=== PATIENT | female | born 1960 | race Caucasian/White ===

== ENCOUNTER 2023-02-05 12:20 | Inpatient (IN) | payer MEDICARE, OTHER ==
[~2023-02-05] VITALS: Ht 180.3 cm; Wt 78.0 kg
[2023-02-05] MEDS ORDERED: MAGNESIUM HYDROXIDE 30 ML UDC PO PRN (13:00)
[2023-02-05] MEDS ORDERED: MAG HYDROX/AL HYDROX/SIMETH 30 ML UDC PO PRN (13:00)
[2023-02-05 13:46] VITALS: BP 124/76; TEMP 98.1; O2SAT 98
[2023-02-05] MEDS ORDERED: LURA80TA PO (14:18)
[2023-02-05] MEDS ORDERED: LEVO50TA8 PO (14:18)
[2023-02-05] MEDS ORDERED: SERT25TA PO (14:18)
[2023-02-05] MEDS ORDERED: ATOR10TA PO (14:18)
[2023-02-05] MEDS ORDERED: LORA-259 PO (14:18)
[2023-02-05] MEDS ORDERED: LURA60TA3 PO (14:41)
[2023-02-05] MEDS ORDERED: ALEN70TA80 PO (14:41)
[2023-02-05] MEDS: LORAZEPAM 0.5 MG TABLET PO PRN (14:53)
[2023-02-05 16:00] VITALS: BP 111/75; TEMP 98; O2SAT 96
[2023-02-05] MEDS: ATORVASTATIN 10 MG TABLET PO SCH (17:10)
[2023-02-05] MEDS: NICOTINE PATCH (14MG) 14 MG PATCH.TD24 TD SCH (17:10)
[2023-02-05 20:26] VITALS: BP 118/70; TEMP 98.6; O2SAT 97
[2023-02-05] MEDS: TEMAZEPAM 7.5 MG CAPSULE PO PRN (21:03)
[2023-02-06 07:18] LABS: ALBUMIN 3.7 g/dL (3.4-5.0); BILIRUBIN,TOTAL 0.5 mg/dL (0.2-1.0); CALCIUM, SERUM 9.5 mg/dL (8.5-10.1); POTASSIUM 4.3 mmol/L (3.5-5.1); TOTAL PROTEIN, SERUM 7.3 g/dL (6.4-8.2)
[2023-02-06 07:20] LABS: CHOLESTEROL 212 mg/dL (<200); HDL CHOLESTEROL 101 mg/dL (40-60); LDL 81 mg/dL (0-99); TRIGLYCERIDES 93 mg/dL (30-150)
[2023-02-06 08:00] VITALS: BP 114/79; TEMP 98.7; O2SAT 97
[2023-02-06] MEDS: LEVOTHYROXINE SODIUM 100 MCG TABLET PO SCH (08:11)
[2023-02-06] MEDS: OLANZAPINE 2.5 MG TABLET PO SCH (12:49)
[2023-02-06 16:00] VITALS: BP 122/96; TEMP 97.8; O2SAT 96
[2023-02-06] MEDS: NICOTINE PATCH (14MG) 14 MG PATCH.TD24 TD SCH (16:07)
[2023-02-06] MEDS: DIVALPROEX SODIUM 250 MG TABLET.DR PO SCH (16:22)
[2023-02-06] MEDS: ATORVASTATIN 10 MG TABLET PO SCH (17:08)
[2023-02-06 20:20] VITALS: BP 134/90; TEMP 97.3; O2SAT 97
[2023-02-06] MEDS: TEMAZEPAM 7.5 MG CAPSULE PO PRN (21:44)
[2023-02-06] MEDS ORDERED: OLANZAPINE 10 MG TABLET PO SCH (22:00)
[2023-02-07] MEDS ORDERED: ALENDRONATE 70 MG TABLET PO SCH (07:30)
[2023-02-07 08:00] VITALS: BP 132/85; TEMP 98.8; O2SAT 97
[2023-02-07] MEDS: LEVOTHYROXINE SODIUM 100 MCG TABLET PO SCH (08:40)
[2023-02-07] MEDS: OLANZAPINE 2.5 MG TABLET PO SCH ×2 (08:40→16:04)
[2023-02-07] MEDS: DIVALPROEX SODIUM 250 MG TABLET.DR PO SCH ×2 (08:40→16:04)
[2023-02-07] MEDS: LORAZEPAM 0.5 MG TABLET PO PRN (12:28)
[2023-02-07] MEDS: NICOTINE PATCH (14MG) 14 MG PATCH.TD24 TD SCH (15:52)
[2023-02-07 16:00] VITALS: BP 122/78; TEMP 97.9; O2SAT 98
[2023-02-07] MEDS: ATORVASTATIN 10 MG TABLET PO SCH (17:15)
[2023-02-07 20:00] VITALS: BP 123/78; TEMP 98; O2SAT 96
[2023-02-07] MEDS: TEMAZEPAM 7.5 MG CAPSULE PO PRN (21:23)
[2023-02-07] MEDS ORDERED: OLANZAPINE 10 MG TABLET PO SCH (22:00)
[2023-02-08] MEDS: LORAZEPAM 0.5 MG TABLET PO PRN (06:52)
[2023-02-08] MEDS ORDERED: ALENDRONATE 70 MG TABLET PO SCH (07:30)
[2023-02-08 08:00] VITALS: BP 125/76; TEMP 98.4; O2SAT 95
[2023-02-08] MEDS: LEVOTHYROXINE SODIUM 100 MCG TABLET PO SCH (08:48)
[2023-02-08] MEDS: DIVALPROEX SODIUM 250 MG TABLET.DR PO SCH ×4 (08:48→18:08)
[2023-02-08] MEDS: OLANZAPINE 2.5 MG TABLET PO SCH ×4 (08:48→18:08)
[2023-02-08] MEDS: NICOTINE PATCH (14MG) 14 MG PATCH.TD24 TD SCH (15:11)
[2023-02-08 16:00] VITALS: BP 124/85; TEMP 98.3; O2SAT 97
[2023-02-08] MEDS: ATORVASTATIN 10 MG TABLET PO SCH ×2 (17:12→18:08)
[2023-02-08 20:00] VITALS: BP 122/76; TEMP 98.2; O2SAT 95
[2023-02-08] MEDS: OLANZAPINE 10 MG TABLET PO SCH (21:08)
[2023-02-09] MEDS: LORAZEPAM 0.5 MG TABLET PO PRN ×2 (01:51→09:52)
[2023-02-09 07:33] LABS: BASOPHILS % (AUTO) 0.4 % (0.0-2.0); EOSINOPHILS # (AUTO) 0.2 K/uL (0.0-0.7); EOSINOPHILS % (AUTO) 2.5 % (0.0-6.0); HEMATOCRIT 37 % (33-45); HEMOGLOBIN 12.2 g/dL (11.5-14.8); LYMPHOCYTES # (AUTO) 1.4 K/uL (0.8-4.8); LYMPHOCYTES % (AUTO) 22.3 % (20.0-44.0); MEAN CORPUSCULAR HEMOGLOBIN 29 PG (26.0-33.0); MEAN CORPUSCULAR HGB CONC 33 g/dl (31.0-36.0); MEAN CORPUSCULAR VOLUME 89 fL (82-100); MONOCYTES # (AUTO) 0.5 K/uL (0.1-1.30); MONOCYTES % (AUTO) 7.3 % (2.0-12.0); NEUTROPHILS # (AUTO) 4.4 K/uL (1.8-8.9); NEUTROPHILS % (AUTO) 67.5 % (43.0-81.0); PLATELET COUNT (AUTO) 292 K/uL (150-450); RED BLOOD CELL COUNT(AUTO) 4.15 MIL/uL (4.0-5.2); RED CELL DISTRIBUTION WIDTH 14.5 % (11.5-15.0); WHITE BLOOD COUNT (AUTO) 6.5 K/uL (4.3-11.0)
[2023-02-09 08:00] VITALS: BP 122/75; TEMP 98.8; O2SAT 100
[2023-02-09] MEDS: LEVOTHYROXINE SODIUM 100 MCG TABLET PO SCH (08:12)
[2023-02-09] MEDS: OLANZAPINE 2.5 MG TABLET PO SCH ×3 (08:12→16:28)
[2023-02-09] MEDS: DIVALPROEX SODIUM 250 MG TABLET.DR PO SCH ×2 (08:12→16:28)
[2023-02-09] MEDS: ACETAMINOPHEN 325 MG TABLET PO PRN (13:28)
[2023-02-09] MEDS: NICOTINE PATCH (14MG) 14 MG PATCH.TD24 TD SCH (15:03)
[2023-02-09 16:00] VITALS: BP 122/82; TEMP 98; O2SAT 98
[2023-02-09] MEDS: ATORVASTATIN 10 MG TABLET PO SCH (17:08)
[2023-02-09 20:00] VITALS: BP 105/74; TEMP 98.2; O2SAT 97
[2023-02-09] MEDS: OLANZAPINE 10 MG TABLET PO SCH (21:30)
[2023-02-10] MEDS: diphenhydrAMINE HCL 50 MG CAPSULE PO PRN ×2 (00:11→21:37)
[2023-02-10] MEDS: ACETAMINOPHEN 325 MG TABLET PO PRN ×2 (00:11→13:21)
[2023-02-10] MEDS: LORAZEPAM 0.5 MG TABLET PO PRN (01:06)
[2023-02-10 08:00] VITALS: BP 100/73; TEMP 97.9; O2SAT 99
[2023-02-10] MEDS: LEVOTHYROXINE SODIUM 100 MCG TABLET PO SCH (09:15)
[2023-02-10] MEDS: DIVALPROEX SODIUM 250 MG TABLET.DR PO SCH ×2 (09:15→17:01)
[2023-02-10] MEDS: OLANZAPINE 2.5 MG TABLET PO SCH ×3 (09:18→17:01)
[2023-02-10 16:00] VITALS: BP 111/76; TEMP 98; O2SAT 100
[2023-02-10] MEDS: NICOTINE PATCH (14MG) 14 MG PATCH.TD24 TD SCH (16:59)
[2023-02-10] MEDS: ATORVASTATIN 10 MG TABLET PO SCH (17:00)
[2023-02-10 20:44] VITALS: BP 94/71; TEMP 99; O2SAT 96
[2023-02-10] MEDS: OLANZAPINE 10 MG TABLET PO SCH (21:37)
[2023-02-11 08:00] VITALS: BP 140/96; TEMP 97.9; O2SAT 98
[2023-02-11] MEDS: LEVOTHYROXINE SODIUM 100 MCG TABLET PO SCH (09:03)
[2023-02-11] MEDS: OLANZAPINE 2.5 MG TABLET PO SCH ×3 (09:07→17:54)
[2023-02-11] MEDS: DIVALPROEX SODIUM 250 MG TABLET.DR PO SCH ×4 (09:07→22:04)
[2023-02-11] MEDS ORDERED: TEMAZEPAM 7.5 MG CAPSULE PO PRN (10:30)
[2023-02-11 16:00] VITALS: BP 136/87; TEMP 98.1; O2SAT 96
[2023-02-11] MEDS: NICOTINE PATCH (14MG) 14 MG PATCH.TD24 TD SCH (17:54)
[2023-02-11] MEDS: ATORVASTATIN 10 MG TABLET PO SCH (17:56)
[2023-02-11 20:10] VITALS: BP 120/88; TEMP 98.4; O2SAT 96
[2023-02-11] MEDS: OLANZAPINE 10 MG TABLET PO SCH (22:04)
[2023-02-12 08:00] VITALS: BP 143/91; TEMP 98; O2SAT 97
[2023-02-12] MEDS: DIVALPROEX SODIUM 250 MG TABLET.DR PO SCH ×4 (08:36→21:08)
[2023-02-12] MEDS: OLANZAPINE 2.5 MG TABLET PO SCH ×3 (08:36→16:38)
[2023-02-12] MEDS: LEVOTHYROXINE SODIUM 100 MCG TABLET PO SCH (08:36)
[2023-02-12 16:00] VITALS: BP 146/94; TEMP 98; O2SAT 99
[2023-02-12] MEDS: NICOTINE PATCH (14MG) 14 MG PATCH.TD24 TD SCH (16:38)
[2023-02-12] MEDS: ATORVASTATIN 10 MG TABLET PO SCH (17:00)
[2023-02-12] MEDS: ACETAMINOPHEN 325 MG TABLET PO PRN (19:59)
[2023-02-12 20:25] VITALS: BP 99/70; TEMP 98.6; O2SAT 99
[2023-02-12] MEDS ORDERED: OLANZAPINE 10 MG TABLET PO PRN (21:00)
[2023-02-12] MEDS: OLANZAPINE 10 MG TABLET PO SCH (21:08)
[2023-02-13 08:00] VITALS: BP 120/89; TEMP 98.6; O2SAT 99
[2023-02-13] MEDS: LEVOTHYROXINE SODIUM 100 MCG TABLET PO SCH (08:28)
[2023-02-13] MEDS: OLANZAPINE 2.5 MG TABLET PO SCH ×2 (08:29→13:42)
[2023-02-13] MEDS: DIVALPROEX SODIUM 250 MG TABLET.DR PO SCH ×4 (08:29→22:21)
[2023-02-13] MEDS: NICOTINE PATCH (14MG) 14 MG PATCH.TD24 TD SCH (08:29)
[2023-02-13 16:00] VITALS: BP 147/88; TEMP 98.6; O2SAT 98
[2023-02-13] MEDS: ATORVASTATIN 10 MG TABLET PO SCH (17:23)
[2023-02-13] MEDS: ACETAMINOPHEN 325 MG TABLET PO PRN (19:42)
[2023-02-13] MEDS: LORAZEPAM 0.5 MG TABLET PO PRN (20:45)
[2023-02-13 21:00] VITALS: BP 119/93; TEMP 98.6; O2SAT 100
[2023-02-13] MEDS: OLANZAPINE 10 MG TABLET PO SCH (22:22)
[2023-02-14 08:00] VITALS: BP 100/70; TEMP 98; O2SAT 100
[2023-02-14] MEDS: LEVOTHYROXINE SODIUM 100 MCG TABLET PO SCH (08:16)
[2023-02-14] MEDS: OLANZAPINE 2.5 MG TABLET PO SCH ×2 (09:03→12:14)
[2023-02-14] MEDS: DIVALPROEX SODIUM 250 MG TABLET.DR PO SCH ×4 (09:03→21:48)
[2023-02-14] MEDS: ACETAMINOPHEN 325 MG TABLET PO PRN ×2 (12:36→19:43)
[2023-02-14] MEDS: NICOTINE PATCH (14MG) 14 MG PATCH.TD24 TD SCH (15:03)
[2023-02-14 16:00] VITALS: BP 114/69; TEMP 97.5; O2SAT 96
[2023-02-14] MEDS: ATORVASTATIN 10 MG TABLET PO SCH (17:32)
[2023-02-14 20:00] VITALS: BP 129/99; TEMP 98.1; O2SAT 97
[2023-02-14] MEDS: LORAZEPAM 0.5 MG TABLET PO PRN (20:43)
[2023-02-14] MEDS: OLANZAPINE 10 MG TABLET PO SCH (21:48)
[2023-02-15 08:00] VITALS: BP 127/88; TEMP 97.8; O2SAT 100
[2023-02-15] MEDS: LEVOTHYROXINE SODIUM 100 MCG TABLET PO SCH (10:03)
[2023-02-15] MEDS: OLANZAPINE 2.5 MG TABLET PO SCH ×2 (10:03→13:09)
[2023-02-15] MEDS: DIVALPROEX SODIUM 250 MG TABLET.DR PO SCH ×2 (10:04→13:10)
[2023-02-15] MEDS ORDERED: ALENDRONATE 70 MG TABLET PO SCH (13:36)
[2023-02-15 16:00] VITALS: BP 101/74; TEMP 98.1; O2SAT 97
[2023-02-15] MEDS: NICOTINE PATCH (14MG) 14 MG PATCH.TD24 TD SCH (17:30)
[2023-02-15] MEDS: ATORVASTATIN 10 MG TABLET PO SCH (17:31)
[2023-02-15] MEDS: OLANZAPINE ZYDIS 5 MG TAB.RAPDIS PO SCH (17:31)
[2023-02-15] MEDS: DIVALPROEX SODIUM 125 MG CAP.SPRINK PO SCH (17:33)
[2023-02-15 20:34] VITALS: BP 127/87; TEMP 98; O2SAT 100
[2023-02-15] MEDS ORDERED: OLANZAPINE ZYDIS 5 MG TAB.RAPDIS PO SCH (22:00)
[2023-02-16] MEDS: diphenhydrAMINE HCL 50 MG CAPSULE PO PRN (02:07)
[2023-02-16 07:20] LABS: BASOPHILS # (AUTO) 0.1 K/uL (0.0-0.2); BASOPHILS % (AUTO) 1.2 % (0.0-2.0); EOSINOPHILS # (AUTO) 0.2 K/uL (0.0-0.7); EOSINOPHILS % (AUTO) 3.4 % (0.0-6.0); HEMATOCRIT 38 % (33-45); HEMOGLOBIN 12.4 g/dL (11.5-14.8); LYMPHOCYTES # (AUTO) 2.1 K/uL (0.8-4.8); LYMPHOCYTES % (AUTO) 39.6 % (20.0-44.0); MEAN CORPUSCULAR HEMOGLOBIN 29 PG (26.0-33.0); MEAN CORPUSCULAR HGB CONC 33 g/dl (31.0-36.0); MEAN CORPUSCULAR VOLUME 89 fL (82-100); MONOCYTES # (AUTO) 0.4 K/uL (0.1-1.30); MONOCYTES % (AUTO) 8.5 % (2.0-12.0); NEUTROPHILS # (AUTO) 2.5 K/uL (1.8-8.9); NEUTROPHILS % (AUTO) 47.3 % (43.0-81.0); PLATELET COUNT (AUTO) 269 K/uL (150-450); RED BLOOD CELL COUNT(AUTO) 4.27 MIL/uL (4.0-5.2); RED CELL DISTRIBUTION WIDTH 13.7 % (11.5-15.0); WHITE BLOOD COUNT (AUTO) 5.2 K/uL (4.3-11.0)
[2023-02-16] MEDS ORDERED: ALENDRONATE 70 MG TABLET PO SCH (07:30)
[2023-02-16 07:44] LABS: ALBUMIN 3.1 g/dL (3.4-5.0); BILIRUBIN,TOTAL 0.2 mg/dL (0.2-1.0); CALCIUM, SERUM 8.6 mg/dL (8.5-10.1); CREATININE 0.7 mg/dL (0.6-1.3); POTASSIUM 4.3 mmol/L (3.5-5.1); TOTAL PROTEIN, SERUM 6.6 g/dL (6.4-8.2)
[2023-02-16 08:00] VITALS: BP_SYST 141; BP_SYST 150; BP_DIAS 77; BP_DIAS 90; TEMP 98; O2SAT 100
[2023-02-16] MEDS: DIVALPROEX SODIUM 125 MG CAP.SPRINK PO SCH ×2 (08:17→17:09)
[2023-02-16] MEDS: LEVOTHYROXINE SODIUM 100 MCG TABLET PO SCH (08:17)
[2023-02-16] MEDS: OLANZAPINE ZYDIS 5 MG TAB.RAPDIS PO SCH ×3 (08:18→22:04)
[2023-02-16] MEDS: LORAZEPAM 0.5 MG TABLET PO PRN (08:19)
[2023-02-16] MEDS: risperiDONE-M 0.5 MG TAB.RAPDIS PO SCH ×5 (13:30→22:03)
[2023-02-16] MEDS: NICOTINE PATCH (14MG) 14 MG PATCH.TD24 TD SCH (15:27)
[2023-02-16 16:00] VITALS: BP 110/74; TEMP 98.2; O2SAT 99
[2023-02-16] MEDS: ATORVASTATIN 10 MG TABLET PO SCH (17:10)
[2023-02-16 19:59] LABS: APPEARANCE,URINE CLEAR (CLEAR); BILIRUBIN,URINE NEGATIVE (NEGATIVE); BLOOD, URINE NEGATIVE Ery/uL (NEGATIVE); COLOR,URINE YELLOW (YELLOW); KETONES,URINE TRACE mg/dL (NEGATIVE); LEUKOCYTE ESTERASE ,URINE TRACE (NEGATIVE); NITRITE, URINE POSITIVE (NEGATIVE); PH,URINE 5.5 (5.0-8.0); PROTEIN,URINE NEGATIVE (NEGATIVE); UGLUCOSE NEGATIVE (NEGATIVE); UROBILINOGEN,URINE 0.2 EU/dL (0.2)
[2023-02-16 20:02] LABS: ADD URINE CULTURE YES; BACTERIA,URINE RARE /HPF (None Seen); RBC,URINE 0-2 /HPF (0-2); SQUAMOUS EPITHELIAL CELL,UR 0-2 /HPF (None Seen)
[2023-02-16 20:17] VITALS: BP 130/66; TEMP 98.4; O2SAT 99
[2023-02-17] MEDS: ACETAMINOPHEN 325 MG TABLET PO PRN ×2 (04:53→13:49)
[2023-02-17] MEDS: LORAZEPAM 0.5 MG TABLET PO PRN (06:09)
[2023-02-17 08:00] VITALS: BP 93/72; TEMP 97.7; O2SAT 99
[2023-02-17] MEDS: DIVALPROEX SODIUM 125 MG CAP.SPRINK PO SCH ×2 (08:08→16:50)
[2023-02-17] MEDS: risperiDONE-M 0.5 MG TAB.RAPDIS PO SCH ×2 (08:08→21:17)
[2023-02-17] MEDS: LEVOTHYROXINE SODIUM 100 MCG TABLET PO SCH (08:08)
[2023-02-17] MEDS: NICOTINE PATCH (14MG) 14 MG PATCH.TD24 TD SCH (08:08)
[2023-02-17] MEDS: OLANZAPINE ZYDIS 5 MG TAB.RAPDIS PO SCH ×3 (08:08→21:17)
[2023-02-17 16:00] VITALS: BP 99/66; TEMP 97.9; O2SAT 100
[2023-02-17] MEDS: ATORVASTATIN 10 MG TABLET PO SCH (18:13)
[2023-02-17 20:36] VITALS: BP 119/81; TEMP 98.2; O2SAT 100
[2023-02-18] MEDS: ACETAMINOPHEN 325 MG TABLET PO PRN ×2 (04:48→21:03)
[2023-02-18] MEDS: LORAZEPAM 0.5 MG TABLET PO PRN (06:23)
[2023-02-18 08:00] VITALS: BP 106/70; TEMP 98.6; O2SAT 98
[2023-02-18] MEDS: LEVOTHYROXINE SODIUM 100 MCG TABLET PO SCH (08:20)
[2023-02-18] MEDS: NICOTINE PATCH (14MG) 14 MG PATCH.TD24 TD SCH (08:45)
[2023-02-18] MEDS: OLANZAPINE ZYDIS 5 MG TAB.RAPDIS PO SCH ×2 (08:46→21:03)
[2023-02-18] MEDS: DIVALPROEX SODIUM 125 MG CAP.SPRINK PO SCH ×2 (08:46→17:10)
[2023-02-18] MEDS: risperiDONE-M 0.5 MG TAB.RAPDIS PO SCH ×3 (08:46→17:10)
[2023-02-18 16:00] VITALS: BP 105/72; TEMP 98.2; O2SAT 99
[2023-02-18] MEDS: ATORVASTATIN 10 MG TABLET PO SCH (17:10)
[2023-02-18 20:58] VITALS: BP 105/74; TEMP 98.4; O2SAT 97
[2023-02-19] MEDS: diphenhydrAMINE HCL 50 MG CAPSULE PO PRN ×2 (02:00→22:35)
[2023-02-19] MEDS: LEVOTHYROXINE SODIUM 100 MCG TABLET PO SCH (07:21)
[2023-02-19] MEDS: ACETAMINOPHEN 325 MG TABLET PO PRN (07:27)
[2023-02-19 08:00] VITALS: BP 106/72; TEMP 97.9; O2SAT 99
[2023-02-19] MEDS: DIVALPROEX SODIUM 125 MG CAP.SPRINK PO SCH ×2 (08:21→16:24)
[2023-02-19] MEDS: risperiDONE-M 0.5 MG TAB.RAPDIS PO SCH ×3 (08:22→16:24)
[2023-02-19 16:03] VITALS: BP 115/74; TEMP 98.1; O2SAT 98
[2023-02-19] MEDS: NICOTINE PATCH (14MG) 14 MG PATCH.TD24 TD SCH (16:24)
[2023-02-19] MEDS: ATORVASTATIN 10 MG TABLET PO SCH (17:14)
[2023-02-19 20:00] VITALS: BP 95/70; TEMP 98.3; O2SAT 97
[2023-02-19] MEDS: LORAZEPAM 0.5 MG TABLET PO PRN (20:17)
[2023-02-19] MEDS ORDERED: RISPERIDONE 0.25 MG TAB.RAPDIS PO SCH (21:00)
[2023-02-20] MEDS: LORAZEPAM 0.5 MG TABLET PO PRN (03:36)
[2023-02-20 08:00] VITALS: BP 99/61; TEMP 99.5; O2SAT 96
[2023-02-20] MEDS: risperiDONE-M 0.5 MG TAB.RAPDIS PO SCH ×3 (08:26→16:46)
[2023-02-20] MEDS: LEVOTHYROXINE SODIUM 100 MCG TABLET PO SCH (08:26)
[2023-02-20] MEDS: NICOTINE PATCH (14MG) 14 MG PATCH.TD24 TD SCH (08:26)
[2023-02-20] MEDS: DIVALPROEX SODIUM 125 MG CAP.SPRINK PO SCH ×2 (08:26→16:46)
[2023-02-20] MEDS: ACETAMINOPHEN 325 MG TABLET PO PRN ×2 (08:26→14:14)
[2023-02-20 16:00] VITALS: BP 116/70; TEMP 99.1; O2SAT 96
== END 2023-02-20 17:45 | DRG 885 ==
LOC: GPS 12:20
PROVIDERS: ADMIT Psychiatry & Neurology Psychosomatic Medicine; ATTEND Nurse Practitioner Family
DX: F25.0 Schizoaffective disorder, bipolar type (principal); U07.1 COVID-19; F29 Unspecified psychosis not due to a substance or known physiological condition; E03.9 Hypothyroidism, unspecified; E78.5 Hyperlipidemia, unspecified; M81.0 Age-related osteoporosis without current pathological fracture; F20.9 Schizophrenia, unspecified; F41.9 Anxiety disorder, unspecified; Z73.6 Limitation of activities due to disability; F19.11 Other psychoactive substance abuse, in remission; M62.81 Muscle weakness (generalized); F60.3 Borderline personality disorder
CPT/HCPCS: 36415; 80048-TC; 80053-TC; 80061-TC; 80164-TC; 81001; 85025-TC; 87086-TC; Q0163